=== PATIENT | male | born 1945 | race Caucasian/White ===

== ENCOUNTER → 2017-03-01 | Outpatient (CLI) | payer BC ==
[~2017-03-01] MED LIST: ALBUAER19 INH; ATOR-22 PO; DUTACAP PO; FLUT230A IN; MULT-506 PO; SPRIN/30 INH; VARD10TA PO
== END | disposition home or self-care (01) ==
LOC: C.LABSPEC 17:07
PROVIDERS: ATTEND Urology
DX: C67.9 Malignant neoplasm of bladder, unspecified (principal)

== ENCOUNTER → 2017-04-12 | Outpatient (CLI) | payer BC | END | disposition home or self-care (01) | LOC: C.PATHSPEC 17:35 | PROVIDERS: ATTEND Urology | DX: C67.9 Malignant neoplasm of bladder, unspecified (principal); D49.4 Neoplasm of unspecified behavior of bladder ==